=== PATIENT | female | born 1970 | race Caucasian/White ===

== ENCOUNTER → 2017-02-12 | Outpatient (CLI) | payer BC ==
--- NOTE | 2017-02-12 18:11 | RAD ---
HISTORY: Right hip pain Study: Right hip AP, frog-leg, AP pelvis Comparison: None Findings: A single frontal view of the pelvis demonstrates the pelvic ring to be intact. No evidence for acute cortical disruption or dislocation of the hip can be observed. Frog leg views of the hip fails to d emonstrate evidence for fracture or significant joint abnormality. Impression: 1. Negative exam. Reported By:
--- NOTE | 2017-02-12 18:12 | RAD ---
HISTORY: Low back pain Study: Lumbar spine AP, lateral, bilateral obliques, spot Comparison: None Findings: Normal alignment of the lumbar spine is maintained. The posterior elements appear unremarkable in th eir appearance. The disk space height is maintained without significant endplate sclerosis. No evid ence for acute fracture can be identified. No spondylolysis or spondylolisthesis is identified. The S I joints are normal. IMPRESSION: 1. Negative exam. Reported By:
== END ==
LOC: RAD 16:06
PROVIDERS: ATTEND Nurse Practitioner Family
DX: M54.17 Radiculopathy, lumbosacral region (principal); M25.551 Pain in right hip
CPT/HCPCS: 72110; 73501

== ENCOUNTER → 2017-02-23 | Outpatient (CLI) | payer BC ==
[~2017-02-23] MED LIST: NS 100 ML IV 100 ML IV ONE
--- NOTE | 2017-02-24 14:37 | CT ---
HISTORY: Generalized abdominal pain x2 weeks, right-side Study: CT abdomen and pelvis with contrast Comparison: 05/04/2016 Technique: Multiple axial images of the abdomen and pelvis were obtained with IV contrast. Oral contrast was ad ministered. Dose reduction techniques including Automated Exposure Control (AEC) and adjustment of mA and kV were utilized. Findings: The visualized portions of the lung bases are unremarkable. The liver, spleen, pancreas, kidneys, an d adrenal glands are unremarkable in their CT appearance. The gallbladder is removed. No renal calcul i or obstructive uropathy. No free intraperitoneal air. No evidence of intestinal obstruction or inflammation. The appendix is n ormal. Oral contrast reaches the descending colon. No free fluid is identified. The soft tissues and osseous structures are unremarkable. The vascular structures are unremarkable. N o pathologically enlarged lymph nodes are identified. Probable corpus luteum on the left ovary. The u terus is removed. The urinary bladder is normal. IMPRESSION: 1.Negative CT of the abdomen and pelvis. Reported By:
== END ==
LOC: RAD 10:28
PROVIDERS: ATTEND Nurse Practitioner Family
DX: R10.84 Generalized abdominal pain (principal); R10.31 Right lower quadrant pain; R11.0 Nausea; K59.09 Other constipation; M25.551 Pain in right hip; M54.17 Radiculopathy, lumbosacral region
CPT/HCPCS: 74177; A4222

== ENCOUNTER → 2017-04-01 | Outpatient (CLI) | payer BC ==
--- NOTE | 2017-04-02 10:52 | MRI ---
MRI OF THE LUMBAR SPINE WITHOUT IV CONTRAST CLINICAL INDICATION: Lumbosacral radiculitis TECHNIQUE: Pre-contrast sagittal T1-, T2-, and T2-w fat-saturated images, and axial T1- and T2-w imag es of the lumbar spine. COMPARISON: None. FINDINGS: For purposes of this dictation, it is assumed that there are 5 [id number], lumbar-type vertebrae , and the most caudal fully segmented lumbar vertebra is labeled L5. The lumbar spine demonstrates normal alignment. Vertebral bodies are normal in height. There is a nor mal marrow signal pattern. Intervertebral discs are normal in height and signal intensity. The conus medullaris terminates at a normal level and the nerve roots of the cauda equina appear normal. The in cluded paraspinal soft tissues and retroperitoneal structures are grossly normal. Evaluation of the individual levels demonstrates: L1-2: Normal L2-3: Normal L3-4: Mild circumferential disc bulge without central stenosis. Bilateral facet signal. Mild right ne ural foraminal stenosis. L4-5: Circumferential disc bulge without central stenosis. Bilateral facet signal. L5-S1: Normal IMPRESSION: 1. Mild L3-L4 and L4-5 disc bulges without central stenosis. Bilateral facet arthritisat these levels . Reported By:
== END ==
LOC: RAD 15:31
PROVIDERS: ATTEND Nurse Practitioner Family
DX: M54.17 Radiculopathy, lumbosacral region (principal)
CPT/HCPCS: 72148